=== PATIENT | female | born 1960 | race Hispanic/Latino ===

== ENCOUNTER → 2018-10-24 12:35 | Outpatient (CLI) | payer OTHER, MEDICAID, SELFPAY ==
[2018-10-24 13:31] LABS: Blood Urea Nitrogen 14 mg/dL (7-17); Calcium 10.2 mg/dL (8.4-10.2); Carbon Dioxide 29 mmol/L (22-32); Chloride 99 mmol/L (98-107); Estimated Glomerular Filt Rate > 60.0 mL/min (>60); Glucose 136 mg/dL (70-100); HEMOLYSIS < 15 (0-50); Potassium 4.1 mmol/L (3.4-5.1); Sodium 140 mmol/L (137-145)
[2018-10-24 13:35] LABS: Appearance Urine UA CLEAR; Bilirubin Urine UA NEGATIVE (NEGATIVE); Color Urine UA YELLOW; Glucose Urine UA NEGATIVE (Negative); Ketones Urine UA NEGATIVE (NEGATIVE); Leukocyte Esterase Urine UA TRACE (NEGATIVE); Nitrite Urine UA NEGATIVE (Negative); Occult Blood Urine UA NEGATIVE (Negative); Protein Urine UA NEGATIVE (Negative); Specific Gravity Urine UA 1.015 (1.000-1.035); Urobilinogen Urine UA 0.2 E.U./dL (0.2)
[2018-10-24 13:51] LABS: RBC Urine 0-1/HPF (0-5/HPF)
[2018-10-24 13:52] LABS: Amorphous Sediment Urine 1+; Bacteria Urine Few (2-10); Culture Indicated Urine Specimen Cultured; Mucus Urine 1+ (Negative); Squamous Epithelial Cell Urine 1-5 /HPF (0-5/HPF); WBC Urine 1-5/HPF (0-5/HPF)
[2018-10-24 14:00] LABS: Add Manual Diff / Slide Review NO; Basophils Absolute Auto 0 /uL (0-100); Basophils Percent Auto 0.5 % (0-2); Eosinophils Absolute Auto 100 /uL (0-450); Eosinophils Percent Auto 0.9 % (2-4); Hematocrit 41.1 % (36-46); Hemoglobin 14.2 g/dL (12.0-16.0); Lymphocytes Absolute Auto 1600 /uL (1100-4500); Lymphocytes Percent Auto 20.9 % (25-40); Mean Corpuscular HGB Conc 34.6 % (30-36); Mean Corpuscular Hemoglobin 28.9 PG (26-34); Mean Corpuscular Volume 83.5 fL (80-100); Monocytes Absolute Auto 400 /uL (0-900); Monocytes Percent Auto 5.1 % (3-14); Neutrophils Absolute Auto 5500 /uL (1500-7000); Neutrophils Percent Auto 72.6 % (50-75); Platelet Count 305 X10^3/uL (150-400); Red Blood Cell Count 4.92 X10^6/uL (4.0-5.2); Red Cell Distribution Width 13.2 % (11.6-14.8); White Blood Cell Count 7.6 X10^3/uL (4.5-11.0)
[2018-10-24 14:22] LABS: Hemoglobin A1C% w Est Avg Glu 5.4 % (4.0-6.0)
== END ==
PROVIDERS: Visit Provider Orthopaedic Surgery
DX: Z01.818 Encounter for other preprocedural examination (principal); Z01.812 Encounter for preprocedural laboratory examination; N39.9 Disorder of urinary system, unspecified; Z13.1 Encounter for screening for diabetes mellitus; R73.9 Hyperglycemia, unspecified
CPT/HCPCS: 36415; 80048; 81001; 83036; 85025; 87086; 93005

== ENCOUNTER → 2019-01-10 10:47 | Outpatient (CLI) | payer OTHER, SELFPAY ==
[2019-01-10 10:59] LABS: Bacteria Urine None Seen
[2019-01-10 11:27] LABS: Appearance Urine UA CLEAR; Bilirubin Urine UA NEGATIVE (NEGATIVE); Color Urine UA YELLOW; Glucose Urine UA NEGATIVE (Negative); Ketones Urine UA TRACE (NEGATIVE); Leukocyte Esterase Urine UA NEGATIVE (NEGATIVE); Nitrite Urine UA NEGATIVE (Negative); Occult Blood Urine UA TRACE-INTACT (Negative); Protein Urine UA NEGATIVE (Negative); Specific Gravity Urine UA 1.015 (1.000-1.035); Urobilinogen Urine UA 0.2 E.U./dL (0.2)
[2019-01-10 11:46] LABS: Amorphous Sediment Urine 1+; RBC Urine 0-1/HPF (0-5/HPF); WBC Urine 0-1/HPF (0-5/HPF)
[2019-01-10 11:47] LABS: Culture Indicated Urine Cult Not Indicated
[2019-01-10 12:08] LABS: Add Manual Diff / Slide Review NO; Basophils Absolute Auto 0 /uL (0-100); Basophils Percent Auto 0.5 % (0-2); Eosinophils Absolute Auto 100 /uL (0-450); Eosinophils Percent Auto 1.1 % (2-4); Hematocrit 40.7 % (36-46); Hemoglobin 14.2 g/dL (12.0-16.0); Lymphocytes Absolute Auto 1700 /uL (1100-4500); Lymphocytes Percent Auto 28.1 % (25-40); Mean Corpuscular HGB Conc 34.8 % (30-36); Mean Corpuscular Hemoglobin 28.8 PG (26-34); Mean Corpuscular Volume 82.6 fL (80-100); Monocytes Absolute Auto 500 /uL (0-900); Monocytes Percent Auto 7.6 % (3-14); Neutrophils Absolute Auto 3900 /uL (1500-7000); Neutrophils Percent Auto 62.7 % (50-75); Platelet Count 285 X10^3/uL (150-400); Red Blood Cell Count 4.93 X10^6/uL (4.0-5.2); Red Cell Distribution Width 12.9 % (11.6-14.8); White Blood Cell Count 6.2 X10^3/uL (4.5-11.0)
[2019-01-10 12:30] LABS: Hemoglobin A1C% w Est Avg Glu 5.5 % (4.0-6.0)
== END ==
PROVIDERS: Visit Provider Physician Assistant Surgical
DX: N39.0 Urinary tract infection, site not specified (principal); R73.9 Hyperglycemia, unspecified; Z01.818 Encounter for other preprocedural examination
CPT/HCPCS: 36415; 81001; 83036; 85025; 93005

== ENCOUNTER 2019-01-24 11:30 | Inpatient (IN) | payer OTHER, MEDICAID, SELFPAY ==
[2019-01-10 09:54] VITALS: BMI 30.7
[2019-01-24] VITALS (15 sets, daily range): BP systolic 108–132; BP diastolic 64–89; PULSE 56–85; RESP 10–21; TEMP 36–36.7; O2SAT 95–100; BMI 29.9
--- NOTE | 2019-01-24 | DI.RAD.S_ITS ---
PROCEDURE: XR HIP W PEL IF DONE LT 2V INDICATIONS: POST OPERATIVE TOTAL LEFT HIP TECHNIQUE: 2 view(s) of the hip acquired. COMPARISON: Located Within [facility], [place], XR HIP W PEL IF DONE LT 2V, 01/24/2019, 15:45. FINDINGS: Bones: Patient is status post left hip arthroplasty, with hardware components in expected positions. The hip joint appears congruent. The visualized bony structures appear intact. Soft tissues: Overlying postoperative changes are noted. No suspicious soft tissue densities. IMPRESSION: Normal alignment after left total hip arthroplasty, prior right total hip arthroplasty stable over time. Dictated by Cas Lux M.D. 01/24/2019 at 17:25 Approved by: Cas Lux M.D. on 01/24/2019 at 17:27
--- NOTE | 2019-01-24 08:20 | DI.RAD.S_ITS ---
PROCEDURE: XR HIP W PEL IF DONE LT 2V INDICATIONS: INTER OP TOTAL LEFT HIP TECHNIQUE: 2 views of the hip were acquired. COMPARISON: [facility], [place], XR PELVIS WITH BILATERAL LATERAL HIPS, 10/24/2018, 10:03. FINDINGS: Bones: Intraoperative images demonstrate placement of left hip arthroplasty with spacer devices in expected positions. No periprosthetic fracture seen. Right hip arthroplasty again noted. Soft tissues: No suspicious soft tissue calcifications or masses. IMPRESSION: Intraoperative images demonstrating spacer devices in expected position during placement of left hip arthroplasty. Dictated by: Silviano AG Interpreted: Selwyn Angeles MD on 01/24/2019 at 16:40 Approved by: Selwyn Angeles M.D. on 01/24/2019 at 16:54
[2019-01-24] MEDS: LACTATED RINGERS 1,000 ML 42 ML IV ×2 (12:30→16:27)
[2019-01-24] MEDS: VANCOMYCIN 1,000 MG/200 ML PIGGYBACK 200 MG IV (12:57)
[2019-01-24] MEDS: CELECOXIB 200 MG CAPSULE PO (13:01)
[2019-01-24] MEDS: ACETAMINOPHEN 325 MG TABLET 975 MG PO ×2 (13:01→22:56)
[2019-01-24] MEDS: PREGABALIN 75 MG CAPSULE PO (13:01)
--- NOTE | 2019-01-24 13:43 | P.OP_ITS ---
Operative Date/Time/Diagnoses Date of procedure: 01/24/19 Time of procedure: 14:14 Pre-op diagnosis: left hip OA/ AVN Post-op diagnosis: same Procedure & Clinicians Procedure: left total hip arthroplasty Same procedure as scheduled: Yes Indications: The patient has had progressively worsening left hip pain with radiographic changes consistent with arthritis. Non-operative management has failed and the patient has requested total hip replacement. The risks, benefits and alternatives to surgery were discussed with the patient prior to proceeding. Risks discussed included, but were not limited to, failure to relieve pain, leg length discrepancy, dislocation, stiffness, infection, nerve damage, deep venous thrombosis, pulmonary embolism, stroke, coma, heart attack, permanent paralysis and , as well as the potential need for eventual revision of the prosthetic. 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 The patient received pre-operative antibiotics and was taken to the operating room and placed on the operative table in the right lateral decubitus position after satisfactory anesthesia. A mandarin tutor out was performed. The left leg was prepared from the ankle to the iliac crest with ChloroPrep in the usual fashion and draped through sterile drapes. The hip was approached through an approximately 20 cm incision centered over the greater trochanter and curving gently posteriorly as it went proximally. This was carried sharply to the fascia daniela, which was divided and retracted with a self retaining retractor. The trochanteric bursa was excised with care being taken to avoid the sciatic nerve, which was identified and protected throughout the case. The short external rotators were incised and the capsulomuscular flap was raised and tagged for later repair. The hip was dislocated, and a femoral neck osteotomy performed approximately 15 mm above the lesser trochanter. Retractors were placed around the femur. The canal was opened with a box cutting osteotome, followed by a T handled reamer and a lateralizing reamer. The chili pepper broach was then used, followed by sequential broaching until there was good stability of the broach in the femur. Retractors were placed to expose the acetabulum. The labrum and central soft tissues were removed. Reaming was performed initially going up in 2 mm increments, then 1 mm increments until good bite was obtained with an odd sized reamer. The cup 1 mm larger than the last reamer was then inserted using the appropriate anteversion guides. A trial neutral liner was placed. The broach was placed in the canal. A trial head and neck were then placed and the hip relocated and checked for leg length and stability. An intraoperative film confirmed the component position and no evidence of fracture. The patient was stable in the position of sleep, of squatting, and could be put through a range of motion with 45 degrees internal rotation without dislocation. At 90 degrees flexion, internal rotation to 70 was possible before dislocation. This was felt to be satisfactory and the appropriate components were opened, and the trials were removed. The acetabular liner was impacted into position. The final stem was then impacted into the prepared femoral canal. A brief Betadine soak was performed while trialing with head options. The hip was meticulously irrigated with normal saline. Finally the femoral head was impacted onto the stem. The acetabulum was cleared of all material and the hip relocated one final time. The capsulomuscular flap was then repaired to the greater trochanter though an awl hole using the tag sutures. The short external rotators were repaired with a nonabsorbable suture. A deep drain was placed and brought out anteriorly. The fascia daniela was closed with Vicryl. The subcutaneous layer was closed with barbed sutures and SteriStrips. An Aquacel Ag dressing was applied and the patient was taken to recovery having tolerated the procedure well. Complications: none Post-operative Condition: stable Disposition: Acute Care Plan for aftercare: The patient will be maintained on a standard total hip replacement protocol with weight bearing as tolerated and posterior hip precautions. The patient will receive Aspirin and sequential compression devices for DVT prophylaxis. The patient will be discharged home when safe for the home environment.
--- NOTE | 2019-01-24 13:43 | PM.PREOP ---
Pre-operative Note Interval Note History & Physical reviewed/Exam performed by Physician: Yes Changes to H&P: No
[2019-01-24] MEDS: CEFAZOLIN 2 GM/100 ML FROZ.PIGGY IV ×2 (14:17→22:55)
--- NOTE | 2019-01-24 14:55 | SUR.OPER ---
Right Lateral on padded OR bed. Gel axillary roll. Arms secured on padded armboard with pillow supporting top arm. Padded hip positioner braces x4 - anterior and posterior chest and pelvis. Additional gel pad used anterior pelvis. Gel pad under bottom leg from knee to foot and secured with tape over sheet.
[2019-01-24] MEDS: BUPIVACAINE 0.25% W/ EPI 30 ML VIAL 60 ML INJ (15:12)
[2019-01-24] MEDS: BUPIVACAINE LIPOSOME 266 MG/20 ML VIAL INJ (15:12)
[2019-01-24] MEDS: SODIUM CHLORIDE IRRIG SOLUTION 250 ML, POVIDONE-IODINE SPONGE STICKS 1 APPLIC IRR (15:14)
[2019-01-24] MEDS: TRANEXAMIC ACID 1,000 MG VIAL 1000 MG INJ ×2 (15:15→16:15)
[2019-01-24] MEDS: SODIUM CHLORIDE IRRIG SOLUTION 250 ML, EPINEPHrine 1 MG IRR (15:17)
[2019-01-24] MEDS: fentaNYL 100 MCG/2 ML INJ 50 MCG IV (17:19)
--- NOTE | 2019-01-24 17:29 | SUR.PHASEI ---
PACU post op note: Arrived to PACU sedated, difficult to arouse with loud voice. O2 sat WNL on room air.
--- NOTE | 2019-01-24 17:34 | SUR.PHASEI ---
Hand off PACU Note: VSS, O2 Sat WNL on room air. Medicated with pain medication for pain level 02/28. Improved to 10/29. Dressing CDI, hemovac clamped. X ray done. Report given to Jannie Wolfe.
--- NOTE | 2019-01-24 17:36 | SUR.PHASEI ---
ASSUMED CARE OF PT AT THIS TIME. RECEIVED BEDSIDE REPORT FROM DONNA MENDEZ AT THIS TIME. PT IN STABLE CONDITION, VSS. IV SITE CLEAR AND INFUSING WITHOUT DIFFICULTLY. PT LAYING IN BED WITH EYES CLOSED, EASILY AROUSABLE TO VOICE WHEN SPOKEN TO. DRSG OBSERVED TO BE C/D/I. HEMAVAC DRAIN INTACT AND CLAMPED AT THIS TIME. PT DENIES ANY NAUSEA AND STATES PAIN LEVEL IS TOLERABLE AT THIS TIME.
--- NOTE | 2019-01-24 18:06 | SUR.PHASEI ---
PT TRANSFERRED TO ACUTE CARE FLOOR IN STABLE CONDITION, VSS. BEDSIDE REPORT GIVEN TO DNONA MCNEILL. PT AT BEDSIDE. TRANSFERRED CARE OF PT TO DONNA MCNEILL AT THAT TIME.
[2019-01-24] MEDS: LACTATED RINGERS 1,000 ML 125 ML IV (18:20)
--- NOTE | 2019-01-24 19:11 | PC.NURSE ---
hemovac unclamped at 1850
[2019-01-24] MEDS: CYCLOBENZAPRINE 10 MG TABLET PO (22:55)
[2019-01-24] MEDS: DOCUSATE 100 MG CAPSULE PO (22:55)
[2019-01-24] MEDS: METFORMIN HCL 500 MG TABLET PO (22:56)
[2019-01-24] MEDS: ASPIRIN EC 81 MG TABLET PO (22:56)
[2019-01-24] MEDS: DICLOFENAC 1% GEL 100 GM 1 APPLIC TOP (22:58)
[2019-01-24] MEDS: diphenhydrAMINE 50 MG/ML VIAL 25 MG IV (22:58)
[2019-01-25] VITALS (8 sets, daily range): BP systolic 95–118; BP diastolic 55–69; PULSE 63–80; RESP 14–20; TEMP 36.5–37.1; O2SAT 95–97
[2019-01-25] MEDS: LACTATED RINGERS 1,000 ML 125 ML IV ×3 (03:13→20:14)
--- NOTE | 2019-01-25 05:54 | PC.NURSE ---
Pt denied need for pain medication overnight. Did report pruritis at surgical site florencia 0400, pt very sleepy and moderately difficult to arouse. BP at that time 95/55 with MAP of 67. Discussed with pt and she agreed pruritis was tolerable and agreeable to not having PRN benadryl. Aquacil dressing intact, two dime size areas of serosang drainage. Hemovac patent. CMS intact.
[2019-01-25] MEDS: CEFAZOLIN 2 GM/100 ML FROZ.PIGGY IV (06:18)
[2019-01-25] MEDS: LEVOTHYROXINE 88 MCG TABLET PO (06:18)
[2019-01-25 07:38] LABS: Hematocrit 28.6 % (36-46); Hemoglobin 10.1 g/dL (12.0-16.0)
--- NOTE | 2019-01-25 08:51 | P.PN_ITS ---
Subjective Subjective Date Patient Seen: 01/25/19 Time Patient Seen: 08:51 Interval history: Hospital day 2, postop day 1 following left posterior total hip arthroplasty by Dr. Ornelas. She has remained stable postoperatively. Has noted some itching around her chest area. Has had little pain controlled with Tylenol. She has not had physical therapy yet. She is a [facility] patient and has prescription at home for oxycodone. She is appointment at [facility] and [place]. Hemovac output 50 mL past 8 hours. Exam Vital Signs (past 8 hours): - 01/25/19 04:15 01/25/19 08:40 Temperature 98.0 F 98.5 F Pulse Rate 70 63 Respiratory Rate 18 20 Blood Pressure 95/55 L 97/58 L Pulse Oximetry 95 97 Oxygen Delivery Method Room Air Oxygen Flow Rate 2 Narrative Exam Narrative: Alert, responsive in no acute distress lying in bed. Legs. Aquacel dressing to left hip is dry without drainage or inflammation. Hemovac in place. No calf pain or swelling. Pulses symmetrical. Patient was also seen by Dr. Ornelas at rounds this morning. Objective Labs Result Diagrams: 01/25/19 07:25 Labs: Laboratory Results - last 24 hr 01/25/19 07:25 Hgb 10.1 L Hct 28.6 L Assessment & Plan Post-op Postoperative Procedures: Procedures Operation Date: 01/24/19 13:45 Actual Procedures Side Surgeon p Total Hip Arthroplasty Left Antionette Shar Ornelas MD Plan: Will DC Hemovac today. Will have patient work with PT today. Observe for gradual improvement. Will recheck H&H in the morning. Anticipate discharge home tomorrow if she is stable and cleared by PT. Quality VTE Deep Vein Thrombosis/Pulmonary Embolism Present on Admission: No
[2019-01-25] MEDS: ASPIRIN EC 81 MG TABLET PO ×2 (09:21→22:07)
[2019-01-25] MEDS: IBUPROFEN 600 MG TABLET PO ×2 (09:21→14:34)
[2019-01-25] MEDS: ACETAMINOPHEN 325 MG TABLET 975 MG PO ×3 (09:21→22:07)
[2019-01-25] MEDS: FLUoxetine 20 MG CAPSULE PO (09:21)
[2019-01-25] MEDS: PREGABALIN 75 MG CAPSULE PO (09:22)
[2019-01-25] MEDS: PANTOPRAZOLE 40 MG TABLET PO (09:22)
[2019-01-25] MEDS: METFORMIN HCL 500 MG TABLET PO ×2 (09:22→22:09)
[2019-01-25] MEDS: DOCUSATE 100 MG CAPSULE PO ×2 (09:22→22:08)
--- NOTE | 2019-01-25 12:07 | PT.IIE ---
Current Diagnoses Unilateral primary osteoarthritis, left hip (01/24/19) Surgery Performed Operation Date: 01/24/19 13:45 Actual Procedures p Total Hip Arthroplasty(Left) - Antionette Ornelas MD Surgical History (Last Updated 01/10/19 @ 10:20 by Franci De Jesus RN) History of total right hip arthroplasty (Acute ~10/25/17) Hx of cholecystectomy (Acute) Medical History (Last Updated 01/10/19 @ 10:20 by Franci De Jesus RN) Arthritis (Acute) Fibromyalgia (Acute) GERD (gastroesophageal reflux disease) (Acute) H/O: hysterectomy (Acute) HTN (hypertension) (Acute) Hypothyroidism (Acute) Migraine (Acute) Numbness and tingling (Acute) Osteoarthritis (Acute) Pre-diabetes (Acute) Psoriasis (Acute) Physical Therapy Inpatient Evaluation/Re-Eval M1 PT/OT-IP Prior Functional Status Start: 01/25/19 08:20 Freq: NEEDED Status: Active Protocol: Document 01/25/19 10:15 [facility] (Rec[email or web address] Medical Review Prior Functional Status Medical History Reviewed Yes Communication No deficits noted. Able to make needs known Mobility and Gait Pt used SPC at all times for home and community mobility. She is mostly home bound due to significant pain Activities of Daily Living and IADL's Needed assistance for showering from dtr. / dtr helped in IADLs. Social History Household Members significant other Living Arrangements House Number of Floors (Floors) One Floor Number of Stairs To Enter/Railing? 2 JOSEY without rails Home Environment Standard Height Toilet,Tub/ Shower Doors Home Equipment Front Wheel Walker,Straight Cane Employment Status Unemployed Additional Social History Comment Pt lives in [place] with her and dtr. Her is currently not working but will be able to assist pt as needed. Pt had R CHINTAN in October,. She has appointment at [facility] and [place] M2 PT-IP Current Condition Start: 01/25/19 08:20 Freq: NEEDED Status: Active Protocol: Document 01/25/19 10:15 HH (Rec: 01/25/19 12:07 [email or web address] Physical Therapy Current Condition Current Condition Evaluation Date 01/25/19 Treatment Diagnosis L CHINTAN posterior approach, difficulty in walking Onset Date 01/24/19 Precautions Posterior Hip Precautions No Hip Flexion > 90 degrees,No Hip Internal Rotation,No Hip Adduction Weight Bearing Status Weight Bearing Status Weight Bear as Tolerated M3 PT-IP Subjective Start: 01/25/19 08:20 Freq: NEEDED Status: Active Protocol: Document 01/25/19 10:15 (Rec: 01/25/19 12:07 [email or web address]) Subjective Physical Therapy Visit Type Type Initial Evaluation Visit Start Time 10:15 Visit Stop Time 10:47 Total Visit Minutes 32 Notes Per RN, pt has been expriencing OHTN. She has been up to [facility] since sx. Number of CHIEF TALENT OFFICER Visits 0 Physical Therapy Visit Comments Patient Comments Im still very sleepy and tired. But i want to try getting up. Patient Goals To return home with family. Therapy Pain Assessment Pain When Pain Assessed During Mobility Pain Present Pain Present Pain Reported Location Left Hip Intensity 4 Scale Used Numeric (1 - 10) Description Acute Pain Management Techniques Apply Cold,Re-positioning, Timing of Activity with Medications M4 PT-IP Mobility and Gait Start: 01/25/19 08:20 Freq: NEEDED Status: Active Protocol: Document 01/25/19 10:15 (Rec: 01/25/19 12:07 [email or web address]) PT-Bed Mobility Assessment Rolling Type of Rolling Roll to Right Level of Assist Standby Assistance Supine to Sit Supine to Sit Standby Assistance Scooting Scooting to Edge of Bed Standby Assistance Scooting Up and Down in Bed Standby Assistance PT-Transfer Assessment Sit to and From Stand Sit to and from Stand Contact Guard Assistance Equipment Transfer Assistive Device None,Gait Belt,Front Wheeled Walker Orthotic/Prosthetic Devices or Brace: No Transfers Transfer Destination Bed,Chair Transfer Technique Stand Step Pivot Transfer Ability Level of Assist Contact Guard Assistance Comments Mobility Comments Pt's BP in supine 104/53, in standing = 124/47, post tx= 106/59. Educated pt to use gait belt to unweight her LLE to pivot herself towards EOB. She was able to transfer but slowly. Pt is well aware of her precautions and able to use stagger stance with L foot in front for sit <> stand. Pt did have LOB backward after she got up from toilet and stated I just felt lightheaded suddently. Needed tactile cues to assist in recovery. She then amb to bedside chair and sit there for rest. Denies discomfort and rest comfortably with call light within reach. Gait Assessment Gait Gait Assistance Required: Contact Guard Assist Distance (Feet) 10 Able to Maintain Weight Bearing Status Yes During Gait Assistive Devices Assistive Device Gait Belt,Front Wheeled Walker Orthotic/Prosthetic Devices or Brace: No Gait Deviations General Gait Pattern Antalgic,Decreased Stride Length,Decreased Feet Clearance,Step-to Gait,Wide Based Gait Factors Limiting Gait Function Factors Limiting Gait Function Decreased Activity Tolerance, Decreased Strength,Limited Range of Motion,Pain,Poor Balance,Poor Safety Awareness Comments Gait Comments Pt amb from EOB to bathroom and returned to chair with FWW . She used WBOS but able to WB through L hip as tolerated with much of discomfort. She did need cues for making turns to avoid excessive hip IR. She also requested to sit after bathroom due to fatigue. PT-Balance Assessment Sitting Balance and Reactions Static Sitting Balance Ability Normal Dynamic Sitting Balance Ability Normal Standing Balance and Reactions Static Standing Balance Ability Good Dynamic Standing Balance Ability Good Device Used FWW M5 PT-IP Objective Assessments Start: 01/25/19 08:20 Freq: NEEDED Status: Active Protocol: Document 01/25/19 10:15 (Rec: 01/25/19 12:07 [email or web address]) Orientation Orientation/Cognition Level of Alertness Alert Orientation Name,Age,Birthday,Month,Date, Year,Day of Week,Place, Situation Language Function Ability No Deficits Noted Safety Awareness Understands Safety Issues Memory Description No Deficits Noted Gross Range of Motion Upper Extremity ROM Assessment Within Functional Limits Lower Extremity ROM Assessment Left Impaired Strength Upper Extremity Strength Assessment Within Functional Limits Lower Extremity Strength Assessment Left Impaired Hip 3+/5 Knee 4+/5 Coordination Assessment Gross Coordination Gross Coordination WNL Sensation Assessment Sensation Gross Sensation WNL Light Touch Intact Proprioception (Position) Intact Muscle Tone Muscle Tone WNL Yes M6 PT-IP Treatment Start: 01/25/19 08:20 Freq: NEEDED Status: Active Protocol: Document 01/25/19 10:15 (Rec: 01/25/19 12:07 [email or web address]) Physical Therapy Treatment Exercises Exercises Ankle Pumps,Gluteal Sets,Quad Sets,Heel Slides Education Education Provided Precautions,Weight Bearing Status,Post-Op Packet,Safety M7 PT-IP Assessment and Plan Start: 01/25/19 08:20 Freq: NEEDED Status: Active Protocol: Document 01/25/19 10:15 (Rec: 01/25/19 12:07 [email or web address]) PT Summary Assessment and Plan Potential Rehabilitation Potential Excellent Status of Condition at Evaluation Evolving Summary Impairments Pain,ROM,Strength,Balance,Bed Mobility,Transfers,Gait, Activity Tolerance Assessment Summary Pt is a low complexity who is post op L CHINTAN from yesterday. Upon assessment, pt is sleepy and tired but her BP has improved and more stable since surgery. (104-124/47-59) She is quite weak at this point possibly due to medication and she did LOB posteriorly after sit to stand from toilet who c/o lightheadedness. She overall needed CGA for bed mob , transfer and amb with FWW, and expect her to progress well once she is medically stable. She is mostly likely going to be d/c home with assistance and outpatient PT to cont improve her mobility and strength. Goals Bed Mobility Goal Standby Assistance Transfer Goal Standby Assistance,Front Wheeled Walker Gait Goal Standby Assistance,Front Wheel Walker Gait Distance 200 Other Goals 2STE without rails independently Days to Meet Goals 5 Frequency of Treatment Frequency Of Treatment Twice a Day Treatment Plan Physical Therapy Treatment Plan Bed Mobility Training,Transfer Training,Gait Training, Therapeutic Exercise,Balance Retraining,Post Op Education, Discharge Planning,Hot or Cold Pack,Neuromuscular Re-ed Other Recommendations and Next Treatment review precautions Focus check BP 2 steps if possible bed mob with belt. Recommendations To Nursing Amount of Assist Needed 1 Person Assist Discharge Recommendations PT Discharge Recommendations Home with Assistance, Outpatient PT
--- NOTE | 2019-01-25 16:18 | PT.IPTN ---
Current Diagnoses Unilateral primary osteoarthritis, left hip (01/24/19) Surgery Performed Operation Date: 01/24/19 13:45 Actual Procedures p Total Hip Arthroplasty(Left) - Antionette Ornelas MD Physical Therapy Treatment Note M2 PT-IP Current Condition Start: 01/25/19 08:20 Freq: NEEDED Status: Active Protocol: Document 01/25/19 10:15 HH (Rec: 01/25/19 12:07 [email or web address]) Physical Therapy Current Condition Current Condition Evaluation Date 01/25/19 Treatment Diagnosis L CHINTAN posterior approach, difficulty in walking Onset Date 01/24/19 Precautions Posterior Hip Precautions No Hip Flexion > 90 degrees,No Hip Internal Rotation,No Hip Adduction Weight Bearing Status Weight Bearing Status Weight Bear as Tolerated M3 PT-IP Subjective Start: 01/25/19 08:20 Freq: NEEDED Status: Active Protocol: Document 01/25/19 15:00 GGD (Rec: 01/25/19 16:18 GGD [id number]) Subjective Physical Therapy Visit Type Type Patient Refusal Notes Pt refused states she just got back to bed and is very tired . M4 PT-IP Mobility and Gait Start: 01/25/19 08:20 Freq: NEEDED Status: Active Protocol
[2019-01-25] MEDS: OXYCODONE IR 5 MG TABLET PO ×2 (18:30→22:06)
[2019-01-25] MEDS: CYCLOBENZAPRINE 10 MG TABLET PO (22:08)
[2019-01-25] MEDS: DICLOFENAC 1% GEL 100 GM 1 APPLIC TOP (22:09)
[2019-01-26] MEDS: IBUPROFEN 600 MG TABLET PO (01:18)
[2019-01-26 04:42] VITALS: BP 106/55; PULSE 69; RESP 16; TEMP 36.6; O2SAT 95
[2019-01-26] MEDS: LACTATED RINGERS 1,000 ML 125 ML IV (04:54)
[2019-01-26] MEDS: LEVOTHYROXINE 88 MCG TABLET PO (04:55)
[2019-01-26] MEDS: OXYCODONE IR 5 MG TABLET PO ×2 (04:56→09:26)
[2019-01-26 06:45] LABS: Hematocrit 25.9 % (36-46)
[2019-01-26 08:00] VITALS: BP 100/58; PULSE 70; RESP 14; TEMP 36.2; O2SAT 96
[2019-01-26 08:20] VITALS: O2SAT 96
--- NOTE | 2019-01-26 08:36 | PM.DS.1 ---
History of Present Illness History of Present Illness Date Patient Seen: 01/26/19 Time Patient Seen: 08:36 Chief complaint: [id number] Narrative: Pain is been moderate to severe. Denies fever chills. No nausea vomiting. She has been up walking in the room with physical therapy. Patient's daughter's home to assist her. She does have 2 steps into house which she has not worked with physical therapy yet. Discharge Providers Provider Date of admission: 01/24/19 11:30 Discharge Date: 01/26/19 Consults: 01/24/19 08:20 Consult to Anesthesiology Routine Comment: Consulting Provider: Anesthesiologist Reason for consultation: Regional block for post operative pain control 01/24/19 18:41 Consult to Discharge Planning Routine Comment: Consult to Physical Therapy Evaluate & Treat Comment: Physician Instructions: post op CHINTAN protocol Consult to Respiratory Therapy Evaluate & Treat Comment: Physician Instructions: Evaluate and treat Discharge provider: Kike Nguyen PA-C Summary Hospital Course Discharge Diagnosis: Status post 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 Non-operative management has failed and the patient has requested total hip replacement. The risks, benefits and alternatives to surgery were discussed with the patient prior to proceeding. Risks discussed included, but were not limited to, failure to relieve pain, leg length discrepancy, dislocation, stiffness, infection, nerve damage, deep venous thrombosis, pulmonary embolism, stroke, coma, heart attack, permanent paralysis and , as well as the potential need for eventual revision of the prosthetic. 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 Patient consented to the same. Patient taken to the operating room underwent left total hip arthroplasty. Patient back in her room recovering well and is in stable condition. Status at Discharge Cognitive/behavioral status at discharge: at baseline, oriented Functional status at discharge: uses cane/walker Overall status at discharge: patient is progressing back to baseline Time Spent with Patient Time spent: Less than 30 minutes Exam Vital Signs (past 8 hours): - 01/26/19 04:42 Temperature 97.9 F Pulse Rate 69 Respiratory Rate 16 Blood Pressure 106/55 L Pulse Oximetry 95 Oxygen Delivery Method Room Air Oxygen Flow Rate 2 Narrative Exam Narrative: 58-year-old female having breakfast in bed in no apparent distress. Left hip dressing is clean, dry and intact. Sensation is grossly intact to light touch distal left lower extremity. Motor functions intact. Left leg is warm and dry. Objective Labs Result Diagrams: 01/26/19 06:28 Labs: Laboratory Results - last 24 hr 01/26/19 06:28 Hgb 9.0 L Hct 25.9 L Discharge Plan Discharge Plan Patient Disposition: Home Discharge comment: DC home today after PT Discharge Med Rec/Prescriptions Prescriptions: New aspirin 81 mg Tablet,Delayed Release (Dr/Ec) 81 mg PO BID Qty: 60 RF: 0 ibuprofen 600 mg Tablet 400 mg PO Q4HR Qty: 90 RF: 0 oxycodone 5 mg Tablet 5 mg PO Q3HR PRN (Reason: Pain, Moderate (4-6)) Qty: 40 RF: 0 Continued cyclobenzaprine 10 mg Tablet 10 mg PO BID RF: 0 fluoxetine 10 mg Tablet 20 mg PO DAILY RF: 0 pantoprazole 40 mg Tablet,Delayed Release (Dr/Ec) 40 mg PO DAILY RF: 0 ranitidine HCl 150 mg Capsule 150 mg PO BEDTIME RF: 0 hydrochlorothiazide 25 mg Tablet 25 mg PO DAILY RF: 0 levothyroxine 88 mcg Capsule 88 mcg PO DAILY RF: 0 metformin 500 mg Tablet 500 mg PO BID RF: 0 Lyrica 75 mg Capsule 75 mg PO DAILY RF: 0 Discontinued hydrocodone-acetaminophen 5-325 mg Tablet 1 tab PO Q4-6H PRN (Reason: Pain) RF: 0 diclofenac sodium 1 % Gel 2 g TOPICAL BID RF: 0 Follow up/Referrals: Antionette Ornelas MD [Physician] - (1 wk) Provider Discharge Instructions Diet: Carb-consistent/Diabetic Activity: Weightbearing as tolerated, posterior hip precautions Cold/Heat Therapy: Apply ice to the affected area as needed Other treatments: Tylenol 500 mg every 4 hours, ibuprofen 400 mg every 4 hours, aspirin 81 mg b.i.d., oxycodone as needed pain Skin/Wound/Dressing Care Report to your healthcare provider any signs of infection, such as:: chills, fever, increased pain, unusual drainage and unusual redness Dressing: Keep clean and dry Quality VTE Deep Vein Thrombosis/Pulmonary Embolism Present on Admission: No
--- NOTE | 2019-01-26 08:49 | CM.DANOTE ---
Patient is a 58 year old female who was admitted on 01/24/19 for Left Hip Unilateral. Pt has [employer] and [employer] for insurance and her PCP is Dr. Crawley. EMR was reviewed. Per Ortho PA, pt medically stable to d/c home with family today after further PT and no identified barriers to discharge. Per PT, recommending safe d/c home with Sig Other and adult Dtr to assist and outpt PT. Patient resides at home in [facility] with her life partner Danyel and her adult Dtr and is somewhat independent with most ADL's but her family assist with bathing and chores due to pt's pain prior to surgery. Pt has outpt PT already set up at d/c and her significant other is not currently working and available to assist 12/12. Pt and family do not anticipate any SW needs at d/c and preference is to d/c home later today after PT and final CG training. Plan: Patient to d/c home later today via family POV and outpt PT already set up. No SW needs at this time. SARMAD Garvin Discharge Planning/Care Management CM Discharge Assessment Start: 01/26/19 08:47 Freq: Status: Active Protocol: Document 01/26/19 08:47 BF (Rec: 01/26/19 08:49 BF [id number]) Discharge Planning Assessment Assigned Tape Weaver SARMAD Sidhu DPOA/Assigned Designee Name Dtr Advance Directives? No Advance Directives on File No History Provided By Patient,Family Member,Medical Record Has Patient been admitted in last 30 No days? Prior Living Arrangements House Household Members significant other,family Comment Lives at home with Sig Other and adult Dtr Type of transporation used prior to Relies on Others admit Independent with ADL's No: SO and Dtr help with ADL's due to pain Is patient alert and oriented? Yes Needs Assistance With Bathing,Home Chores / Shopping Caregiver for Another No Community Services used prior to Physical Therapy admission: DME Already Rented / Owned Bath Bench,FWW / Walker Comment Home with outpt PT Barriers to Discharge No Discharge Plan Home Community Services Physical Therapy Transportation Arrangement Family bedside and can provide transport home Referrals Initiated None needed Whiteboard Updated in Patient Room with No name and ext. # of Tape Weaver Review Status In Process Please Provide Date Initial DC 01/26/19 Assessment Was Performed Next Review Type Continued Stay Review Pre-Anesthesia Assessment Start: 01/10/19 09:54 Freq: Status: Active Protocol: Document 01/10/19 09:54 CAB (Rec: 01/10/19 10:47 CAB [id number]) Pre-Anesthesia Assessment Patient Information Reviewed Via On-site Review Assessment Completed With Patient Diagnostic Results BMP/CMP,CBC,EKG,Urinalysis Comment labs/EKG @ [facility] Primary Care Provider edwin Seen Specialist in Last 12 Months Yes Specialist Seen Orthopedist Primary Language Upper Sorbian Preferred Language Bangladeshi Stunt Performer Required No Height 162.56 cm Weight 81.193 kg Body Mass Index (BMI) 30.7 Hearing Ability Normal Visual Assist Contacts,Glasses Dentition Type Teeth, Natural Present,Teeth, Missing Barriers to Learning None Other Aids No Hx Anesthesia Reactions No Hx Family Anesthesia Reaction No Hx Malignant Hyperthermia No Hx Blood Transfusions No Anesthesia Review Requested No alcohol intake current alcohol intake frequency holidays/special occasions only Smoking Status Never smoker Substance Use Type does not use Pain Present Pain Reported Musculoskeletal Symptoms Abnormal Gait,Difficulty Walking,Joint Pain,Muscle Spasms,Neck Pain,Numbness, Tingling History of Falling (Recent or History of Yes ) Patient is completely paralyzed or No completely immobile Prosthesis or Orthotic Device Cane Mental Status Oriented to own ability Is patient on oxygen? No Does patient have RAMIREZ/SOB No Hx Sleep Apnea No Currently Taking a Beta Ag No Can You Climb a Flight of Stairs Without Yes SOB Hx Chest Pain No Hx SOB No Hx Syncope or Dizziness No Anti-Coagulant Therapy No Has a Cracking Machine Operator No Cardiac Testing No Hx Pacemaker/ICD No Pacemaker Rep Required? No Cardiac Clearance Received Not Applicable Diet Type At Home Regular dysphagia Yes: Occasion with solid foods Bladder Pattern Incontinent,Incontinent, Stress Urinary Catheter Present No Hx Urinary Self Catheterization No Diabetes Pre-diabetes HgbA1C 5.4 Date 10/24/18 Patient No Lactating No Hx Drug Resistant Organism No Presence of External or Internal Medical Yes: Right hip prosthesis Devices Have you traveled outside the [facility] in the last 30 days? Marital Status Single Lives With significant other Prior Living Arrangements House Number of Floors (Floors) One Floor Support System Significant Other Patient Discharge Plan Description Return Home Feels Safe in Current Environment Yes Been Physically Hurt or Threatened By a No Person in Current Environment Do you have thoughts of harming yourself Vague or others? Are you currently considering suicide? No Do you have a plan to hurt yourself or No Plan others? If Yes, Provider Notified No Comment Feels r/t pain issues with hip Do You Have Any Spiritual Beliefs That No May Affect Your HC Choices? Do You Have Any Cultural Practices That No May Affect Your HC Choices? Who Can We Speak to About Patient's Care Family, friends Identifying Code for Release of Patient Declines to issue Information Health Care Proxy/Next of Kin Misty (daughter) Health Care Proxy Emergency Contact Name Misty (daughter) Danyel (S.O) Emergency Contact Phone Number Misty: [phone] Danyel: [phone] Advance Directives? No PAC Instructions Do not shave/clip surgical site,Durable medical equipment ,Medications to take/avoid, Nasal antibiotic,No ETOH/ petroleum product on skin DOS, NPO,Post-op transportation,Pre -surgical wash,Sturdy shoes/ comfortable clothes,Do not bring valuables and remove jewelry
[2019-01-26 08:56] VITALS: O2SAT 96
[2019-01-26] MEDS: CYCLOBENZAPRINE 10 MG TABLET PO (09:08)
[2019-01-26] MEDS: ASPIRIN EC 81 MG TABLET PO (09:08)
[2019-01-26] MEDS: ACETAMINOPHEN 325 MG TABLET 975 MG PO (09:08)
[2019-01-26] MEDS: FLUoxetine 20 MG CAPSULE PO (09:08)
[2019-01-26] MEDS: DOCUSATE 100 MG CAPSULE PO (09:08)
[2019-01-26] MEDS: PANTOPRAZOLE 40 MG TABLET PO (09:08)
[2019-01-26] MEDS: hydroCHLOROthiazide 25 MG TABLET PO (09:08)
[2019-01-26] MEDS: PREGABALIN 75 MG CAPSULE PO (09:08)
[2019-01-26] MEDS: DICLOFENAC 1% GEL 100 GM 1 APPLIC TOP (09:16)
[2019-01-26] MEDS: METFORMIN HCL 500 MG TABLET PO (09:16)
--- NOTE | 2019-01-26 10:18 | PC.NURSE ---
0394 Pt pulled out her saline lock/IV. Pt states it was bothering me. I applied a band aide to the site. Pt is dcd to home today following PT. Pt is eating & drinking and voiding. 1020 Pt approved for dc now per PT.
--- NOTE | 2019-01-26 10:25 | PT.IPTN ---
Current Diagnoses Unilateral primary osteoarthritis, left hip (01/24/19) Surgery Performed Operation Date: 01/24/19 13:45 Actual Procedures p Total Hip Arthroplasty(Left) - Antionette Ornelas MD Physical Therapy Treatment Note M2 PT-IP Current Condition Start: 01/25/19 08:20 Freq: NEEDED Status: Discharge Protocol: Document 01/25/19 10:15 HH (Rec: 01/25/19 12:07 [id number]) Physical Therapy Current Condition Current Condition Evaluation Date 01/25/19 Treatment Diagnosis L CHINTAN posterior approach, difficulty in walking Onset Date 01/24/19 Precautions Posterior Hip Precautions No Hip Flexion > 90 degrees,No Hip Internal Rotation,No Hip Adduction Weight Bearing Status Weight Bearing Status Weight Bear as Tolerated M3 PT-IP Subjective Start: 01/25/19 08:20 Freq: NEEDED Status: Discharge Protocol: Document 01/26/19 10:30 GGD (Rec: 01/26/19 13:02 GGD [id number]) Subjective Physical Therapy Visit Type Type Treatment Note Visit Start Time 10:00 Visit Stop Time 10:24 Total Visit Minutes 24 Number of ENVIRONMENTAL SERVICES FLOOR TECH Visits 1 Physical Therapy Visit Comments Patient Comments Pt willing to work with therapy. Therapy Pain Assessment Pain When Pain Assessed During Mobility Pain Present Pain Present Pain Reported Location Left Hip Intensity 6 Scale Used Numeric (1 - 10) M4 PT-IP Mobility and Gait Start: 01/25/19 08:20 Freq: NEEDED Status: Discharge Protocol: Document 01/26/19 10:30 GGD (Rec: 01/26/19 13:02 GGD [id number]) PT-Bed Mobility Assessment Sit to Supine Sit to Supine Standby Assistance Scooting Scooting to Edge of Bed Standby Assistance PT-Transfer Assessment Sit to and From Stand Sit to and from Stand Contact Guard Assistance Equipment Transfer Assistive Device Gait Belt,Front Wheeled Walker Orthotic/Prosthetic Devices or Brace: No Transfers Transfer Destination Bed Transfer Ability Level of Assist Contact Guard Assistance Gait Assessment Gait Gait Assistance Required: Contact Guard Assist Distance (Feet) 100 Able to Maintain Weight Bearing Status Yes During Gait Assistive Devices Assistive Device Gait Belt,Front Wheeled Walker Orthotic/Prosthetic Devices or Brace: No Gait Deviations General Gait Pattern Antalgic,Decreased Stride Length,Decreased Feet Clearance,Step-to Gait,Wide Based Gait Factors Limiting Gait Function Factors Limiting Gait Function Decreased Activity Tolerance, Decreased Strength,Limited Range of Motion,Pain,Poor Balance,Poor Safety Awareness Stair Climbing Assessment Evaluation Level of Assist On Stairs Contact Guard Assistance Devices Stair Climbing Assistive Devices Front Wheel Walker Technique/Endurance Stair Climbing Direction Ascend and Descend Stair Climbing Technique Step to Step Number of Steps Climbed 3 Stair Climbing Set # Repetitions (reps) 1 M5 PT-IP Objective Assessments Start: 01/25/19 08:20 Freq: NEEDED Status: Discharge Protocol: Document 01/25/19 10:15 (Rec: 01/25/19 12:07 [id number]) Orientation Orientation/Cognition Level of Alertness Alert Orientation Name,Age,Birthday,Month,Date, Year,Day of Week,Place, Situation Language Function Ability No Deficits Noted Safety Awareness Understands Safety Issues Memory Description No Deficits Noted Gross Range of Motion Upper Extremity ROM Assessment Within Functional Limits Lower Extremity ROM Assessment Left Impaired Strength Upper Extremity Strength Assessment Within Functional Limits Lower Extremity Strength Assessment Left Impaired Hip 3+/5 Knee 4+/5 Coordination Assessment Gross Coordination Gross Coordination WNL Sensation Assessment Sensation Gross Sensation WNL Light Touch Intact Proprioception (Position) Intact Muscle Tone Muscle Tone WNL Yes M6 PT-IP Treatment Start: 01/25/19 08:20 Freq: NEEDED Status: Discharge Protocol: Document 01/26/19 10:30 GGD (Rec: 01/26/19 13:02 GG [id number]) Physical Therapy Treatment Exercises Exercises Ankle Pumps,Gluteal Sets,Quad Sets,Heel Slides Education Education Provided Precautions,Safety M7 PT-IP Assessment and Plan Start: 01/25/19 08:20 Freq: NEEDED Status: Discharge Protocol: Document 01/26/19 10:30 GGD (Rec: 01/26/19 13:02 GGD [id number]) PT Summary Assessment and Plan Summary Assessment Summary PT improving with mobility. She was able to progress gait. She was safe and stable with stair mobility. Frequency of Treatment Frequency Of Treatment Twice a Day Treatment Plan Physical Therapy Treatment Plan Bed Mobility Training,Transfer Training,Gait Training, Therapeutic Exercise,Balance Retraining,Post Op Education, Discharge Planning,Hot or Cold Pack,Neuromuscular Re-ed Recommendations To Nursing Amount of Assist Needed 1 Person Assist Discharge Recommendations PT Discharge Recommendations Home with Assistance, Outpatient PT
== END 2019-01-26 12:24 | disposition home or self-care (01) | DRG 470 ==
PROVIDERS: Physician Assistant; Admitting Provider Orthopaedic Surgery; Visit Provider Orthopaedic Surgery
PROC: 0SRB0JZ Replacement of Left Hip Joint with Synthetic Substitute, Open Approach (ICD-10-PCS; CPT 27130; principal; 2019-01-24 13:45)
DX: M16.12 Unilateral primary osteoarthritis, left hip (principal); M79.7 Fibromyalgia; E07.9 Disorder of thyroid, unspecified; L29.9 Pruritus, unspecified
CPT/HCPCS: 36415; 73502; 82962; 85014; 85018; 94760; 94762; 97116; 97161; 97530; C1776; C9290; J0171; J0690; J1200; J2250; J2274; J2405; J2704; J2765; J3010